=== PATIENT | male | born 1950 | race Caucasian/White ===

== ENCOUNTER 2016-02-27 07:28 | Emergency (ER) | payer BC, MEDICARE ==
[~2016-02-27] VITALS: Ht 177.8 cm; Wt 80.0 kg
[~2016-02-27 07:28] MED LIST: Z.0.NO CURRENT MEDS
[2016-02-27 07:31] VITALS: BP 209/106; PULSE 60; RESP 24; O2SAT 98
== END 2016-02-27 09:09 | disposition left against medical advice (07) ==
LOC: NED 07:28
DX: R10.31 Right lower quadrant pain (principal); Z53.21 Procedure and treatment not carried out due to patient leaving prior to being seen by health care provider
CPT/HCPCS: 99281